=== PATIENT | female | born 1970 | race Caucasian/White ===

== ENCOUNTER 2016-12-02 18:14 | Emergency (ER) | payer BC ==
[~2016-12-02] VITALS: Ht 167.6 cm; Wt 103.2 kg
[~2016-12-02 18:14] MED LIST: ADIPEX-P37.5 M1 PO; AMBIEN10 MG PO; AMOXICILLIN 8751 TAB PO; BCP TD; CARDI-OMEGA1000 MG PO; CEPHALEXIN250 M1 PO; DEPO PROVER150 MG/ML IM; FAMVIR250 MG PO; LORTAB 5/500 501 TAB PO; MACROBID 1100 MG/CAP PO; MOTRIN 800800 MG/TAB PO; MULTIPLE VITAMI1 CAP PO; NAPROSYN500 MG PO; NEURONTIN300 MG/CAP PO; NORCO 325 MG-51 TAB PO; PERCOCET 325 MG1 TA2 PO; PROMETHAZINE12.5 M5 PO; PYRIDIUM200 M1 PO; ULTRAM 50MG TAB50 MG PO; ZOFRAN ODT8 MG PO; ZOFRAN8 MG PO; ZOLOFT; ZOLOFT 25MG25 MG PO; [UNRECOGNIZED DRUG - REMARK]
[2016-12-02 18:31] VITALS: BP 128/92; TEMP 98.6
[2016-12-02] MEDS ORDERED: PROAIR HFA0.09 MG/AC IH (18:36)
[2016-12-02] MEDS ORDERED: DOXYCYCLINE HY100 MG PO (18:36)
[2016-12-02] MEDS ORDERED: PREDNISONE20 MG PO ×2 (18:36→21:16)
[2016-12-02] MEDS ORDERED: PHENERGAN W/CO120 M1 PO (18:37)
[2016-12-02 21:22] VITALS: PULSE 99
== END 2016-12-02 21:23 | disposition home or self-care (01) ==
LOC: COL.ER 18:14
DX: J20.9 Acute bronchitis, unspecified (principal); Z87.891 Personal history of nicotine dependence
CPT/HCPCS: J7512

== ENCOUNTER 2017-02-28 15:15 | Emergency (ER) | payer BC ==
[~2017-02-28] VITALS: Ht 167.6 cm; Wt 103.6 kg
[~2017-02-28 15:15] MED LIST changes: +DOXYCYCLINE HY100 MG PO; +PHENERGAN W/CO120 M1 PO; +PREDNISONE20 MG PO; +PROAIR HFA0.09 MG/AC IH
[2017-02-28 15:17] VITALS: TEMP 97.2
[2017-02-28 16:14] LABS: BASO % 0.3 % (0.0-2.0); EOS # 0.2 (0.0-0.7); EOS % 2.4 % (0-4.0); GRAN # 5.1 (1.4-6.5); GRAN % 72.1 % (42.2-75.2); HEMOGLOBIN 13.1 g/dl (12.5-16.0); LYMPH # 1.3 (1.2-3.4); LYMPH % 18.4 % (20.0-51.0); MEAN CELL VOLUME 88 fl (80.0-100.0); MEAN CORPUSCULAR HEMOGLOBIN 30 pg (27.0-31.0); MEAN CORPUSCULAR HGB CONC 35 g/dl (33.0-37.0); MEAN PLATELET VOLUME 9.4 fl (7.4-10.4); MONO # 0.5 (0.1-0.6); MONO % 6.5 % (1.7-9.3); PLATELET COUNT 206 K/mm3 (130-400); RED BLOOD COUNT 4.34 M/mm3 (4.10-5.30); WHITE BLOOD COUNT 7.1 K/mm3 (4.8-10.8)
[2017-02-28 16:20] LABS: ADJUSTED CALCIUM 9.4 mg/dL (8.4-10.2); ALBUMIN 4.3 gm/dL (3.5-5.0); BILIRUBIN,TOTAL 0.8 mg/dL (0.0-1.0); CALCIUM 9.6 mg/dL (8.4-10.2); CREATININE, serum 1.01 mg/dL (0.52-1.25); POTASSIUM 3.4 mmol/L (3.4-5.0); TOTAL PROTEIN 7.4 gm/dL (6.4-8.2)
[2017-02-28 17:05] LABS: HYALINE CAST >12 /lpf; PH 7 (5-8); URINE APPEARANCE Hazy; URINE BACTERIA Rare /hpf; URINE BILIRUBIN Negative (NEGATIVE); URINE BLOOD Negative (NEGATIVE); URINE COLOR Yellow; URINE GLUCOSE Negative (NEGATIVE); URINE KETONE Negative (NEGATIVE); URINE RBC 0-2 /hpf; URINE UROBILINOGEN Negative (NEGATIVE)
[2017-02-28 18:11] VITALS: BP 118/66; PULSE 87
== END 2017-02-28 18:12 | disposition home or self-care (01) ==
LOC: COL.ER 15:15
PROVIDERS: Family Medicine
DX: E86.0 Dehydration (principal); R55 Syncope and collapse; Z85.3 Personal history of malignant neoplasm of breast; R51 Headache
CPT/HCPCS: J2405; J7030

== ENCOUNTER 2017-06-07 09:25 | Outpatient (RCR) | payer OTHER | END 2017-07-07 14:03 | disposition still patient (30) | LOC: WSOH 09:25 | DX: M25.532 Pain in left wrist (principal); M25.531 Pain in right wrist; M25.521 Pain in right elbow; Z85.3 Personal history of malignant neoplasm of breast; Z90.12 Acquired absence of left breast and nipple ==

== ENCOUNTER 2017-08-02 12:37 | Emergency (ER) | payer BC ==
[~2017-08-02] VITALS: Ht 167.6 cm; Wt 107.3 kg
[2017-08-02 12:42] VITALS: BP 134/84; TEMP 98
[2017-08-02] MEDS ORDERED: MACROBID 1100 MG/CAP PO (12:47)
[2017-08-02] MEDS ORDERED: CIPRO 250MG TA250 MG PO (12:48)
[2017-08-02 13:53] LABS: COLLECTION METHOD CLEAN CATCH
[2017-08-02 14:08] LABS: BASO % 0.8 % (0.0-2.0); EOS # 0.3 (0.0-0.7); EOS % 5.5 % (0-4.0); GRAN # 2.4 (1.4-6.5); GRAN % 45.9 % (42.2-75.2); HEMATOCRIT 39.9 % (37.0-47.0); HEMOGLOBIN 13.6 g/dl (12.5-16.0); LYMPH # 2.1 (1.2-3.4); LYMPH % 38.9 % (20.0-51.0); MEAN CELL VOLUME 87 fl (80.0-100.0); MEAN CORPUSCULAR HEMOGLOBIN 30 pg (27.0-31.0); MEAN CORPUSCULAR HGB CONC 34 g/dl (33.0-37.0); MEAN PLATELET VOLUME 9.4 fl (7.4-10.4); MONO # 0.5 (0.1-0.6); MONO % 8.5 % (1.7-9.3); MUCOUS Present /lpf; PH 7 (5-8); PLATELET COUNT 231 K/mm3 (130-400); RED BLOOD COUNT 4.58 M/mm3 (4.10-5.30); URINE APPEARANCE Hazy; URINE BACTERIA Rare /hpf; URINE BILIRUBIN Negative (NEGATIVE); URINE BLOOD Negative (NEGATIVE); URINE COLOR Amber; URINE GLUCOSE Negative (NEGATIVE); URINE KETONE Negative (NEGATIVE); URINE LEUKOCYTE ESTERASE Negative (NEGATIVE); URINE PROTEIN(semi-quant) Negative (NEGATIVE); URINE RBC 0-2 /hpf; WHITE BLOOD COUNT 5.3 K/mm3 (4.8-10.8)
[2017-08-02 14:15] LABS: ADJUSTED CALCIUM 9.4 mg/dL (8.4-10.2); ALBUMIN 4.4 gm/dL (3.5-5.0); BILIRUBIN,TOTAL 0.7 mg/dL (0.0-1.0); C-REACTIVE PROTEIN 0.8 mg/dL (0.0-0.9); CALCIUM 9.7 mg/dL (8.4-10.2); CREATININE, serum 0.79 mg/dL (0.52-1.25); POTASSIUM 3.9 mmol/L (3.4-5.0)
[2017-08-02] MEDS ORDERED: OMNICEF 300MG300 MG PO (15:55)
[2017-08-02] MEDS ORDERED: ZOFRAN ODT4 MG PO (15:55)
[2017-08-02] MEDS ORDERED: NORCO 325 MG-51 TAB PO (15:55)
[2017-08-02 16:29] VITALS: PULSE 82
== END 2017-08-02 16:29 | disposition home or self-care (01) ==
LOC: COL.ER 12:37
PROVIDERS: Physician Assistant
DX: N39.0 Urinary tract infection, site not specified (principal); Z90.710 Acquired absence of both cervix and uterus; Z85.3 Personal history of malignant neoplasm of breast
CPT/HCPCS: J1170; J1885; J2405; J2550; J7030

== ENCOUNTER 2017-08-25 09:11 | Emergency (ER) | payer BC ==
[~2017-08-25] VITALS: Ht 167.6 cm; Wt 106.8 kg
[~2017-08-25 09:11] MED LIST changes: +CIPRO 250MG TA250 MG PO; +OMNICEF 300MG300 MG PO; +ZOFRAN ODT4 MG PO
[2017-08-25 09:16] VITALS: TEMP 98.4
[2017-08-25] MEDS ORDERED: NEURONTIN300 MG/CAP PO (09:19)
[2017-08-25] MEDS ORDERED: MOTRIN 200200 MG/TAB PO (09:33)
[2017-08-25 11:06] VITALS: BP 112/70; PULSE 65
== END 2017-08-25 10:45 | disposition home or self-care (01) ==
LOC: COL.ER 09:11
DX: S83.91XA Sprain of unspecified site of right knee, initial encounter (principal); F32.9 Major depressive disorder, single episode, unspecified; G62.9 Polyneuropathy, unspecified; Z79.1 Long term (current) use of non-steroidal anti-inflammatories (NSAID); W01.0XXA Fall on same level from slipping, tripping and stumbling without subsequent striking against object, initial encounter
CPT/HCPCS: L1830

== ENCOUNTER 2018-01-09 22:39 | Emergency (ER) | payer BC ==
[~2018-01-09] VITALS: Ht 167.6 cm; Wt 116.4 kg
[~2018-01-09 22:39] MED LIST changes: +MOTRIN 200200 MG/TAB PO
[2018-01-09 23:20] VITALS: TEMP 98
[2018-01-09 23:32] LABS: BASO % 0.4 % (0.0-2.0); EOS # 0.4 (0.0-0.7); EOS % 5.8 % (0-4.0); GRAN # 2.6 (1.4-6.5); GRAN % 38.3 % (42.2-75.2); HEMATOCRIT 38.4 % (37.0-47.0); LYMPH # 3.1 (1.2-3.4); LYMPH % 46.7 % (20.0-51.0); MEAN CELL VOLUME 89 fl (80.0-100.0); MEAN CORPUSCULAR HEMOGLOBIN 30 pg (27.0-31.0); MEAN CORPUSCULAR HGB CONC 34 g/dl (33.0-37.0); MEAN PLATELET VOLUME 9.2 fl (7.4-10.4); MONO # 0.6 (0.1-0.6); MONO % 8.5 % (1.7-9.3); PLATELET COUNT 180 K/mm3 (130-400); RED BLOOD COUNT 4.33 M/mm3 (4.10-5.30); REDCELL DISTRIBUTION WIDTH-CV 12.5 % (11.5-14.5)
[2018-01-09 23:42] LABS: ALBUMIN 3.6 gm/dL (3.5-5.0); BILIRUBIN,TOTAL 0.4 mg/dL (0.0-1.0); CALCIUM 8.6 mg/dL (8.4-10.2); CREATININE, serum 0.79 mg/dL (0.52-1.25); POTASSIUM 3.5 mmol/L (3.4-5.0); TOTAL PROTEIN 7.2 gm/dL (6.4-8.2)
[2018-01-10 00:10] VITALS: BP 147/75; PULSE 88
== END 2018-01-10 00:55 | disposition home or self-care (01) ==
LOC: COL.ER 22:39
PROVIDERS: Nurse Practitioner
DX: J06.9 Acute upper respiratory infection, unspecified (principal); C50.919 Malignant neoplasm of unspecified site of unspecified female breast; Z90.710 Acquired absence of both cervix and uterus; Z90.13 Acquired absence of bilateral breasts and nipples
CPT/HCPCS: J1885; J2270; J2405; J7030

== ENCOUNTER 2018-07-26 01:14 | Emergency (ER) | payer BC ==
[~2018-07-26] VITALS: Ht 167.6 cm; Wt 112.3 kg
[2018-07-26] MEDS ORDERED: AMOXICILLIN 50500 MG PO (01:38)
[2018-07-26] MEDS ORDERED: ZOFRAN ODT4 MG PO (01:38)
[2018-07-26] MEDS ORDERED: MOBIC15 MG PO (01:56)
[2018-07-26 03:24] VITALS: BP 115/75; PULSE 93; TEMP 99
== END 2018-07-26 03:29 | disposition home or self-care (01) ==
LOC: COL.ER 01:14
DX: J03.90 Acute tonsillitis, unspecified (principal)
CPT/HCPCS: J1885; J2550

== ENCOUNTER 2018-10-16 13:00 | Outpatient (RCR) | payer OTHER ==
[~2018-10-16 13:00] MED LIST changes: +AMOXICILLIN 50500 MG PO; +MOBIC15 MG PO
== END 2019-01-14 | disposition home or self-care (01) ==
LOC: WSOH
DX: S61.232A Puncture wound without foreign body of right middle finger without damage to nail, initial encounter (principal); L02.511 Cutaneous abscess of right hand; W26.8XXA Contact with other sharp object(s), not elsewhere classified, initial encounter; Y92.59 Other trade areas as the place of occurrence of the external cause; Y99.0 Civilian activity done for income or pay; Z79.899 Other long term (current) drug therapy

== ENCOUNTER 2019-03-18 16:09 | Emergency (ER) | payer BC ==
[~2019-03-18] VITALS: Ht 167.6 cm; Wt 111.4 kg
[2019-03-18 16:15] VITALS: TEMP 98
[2019-03-18] MEDS ORDERED: CELEBREX50 MG (17:18)
[2019-03-18] MEDS ORDERED: NORCO 325 MG-51 TAB PO (17:19)
[2019-03-18] MEDS ORDERED: FLEXERIL 1010 MG/TAB PO (17:19)
[2019-03-18 19:06] VITALS: BP 135/88; PULSE 74
== END 2019-03-18 19:06 | disposition home or self-care (01) ==
LOC: COL.ER 16:09
DX: M54.5 Low back pain (principal); Z85.3 Personal history of malignant neoplasm of breast
CPT/HCPCS: J1885; J2270

== ENCOUNTER → 2020-03-19 | Outpatient (CLI) | payer BC ==
[~2020-03-19] MED LIST changes: +CELEBREX50 MG; +FLEXERIL 1010 MG/TAB PO
== END ==
LOC: COL.RAD 07:05
DX: C50.812 Malignant neoplasm of overlapping sites of left female breast (principal); K76.0 Fatty (change of) liver, not elsewhere classified; Z90.13 Acquired absence of bilateral breasts and nipples; Z92.3 Personal history of irradiation; Z98.84 Bariatric surgery status
CPT/HCPCS: A9503; Q9967

== ENCOUNTER 2020-04-06 17:57 | Emergency (ER) | payer OTHER ==
[~2020-04-06] VITALS: Ht 167.6 cm; Wt 69.1 kg
[2020-04-06 18:29] VITALS: BP 119/75; TEMP 97.8
[2020-04-06 20:04] VITALS: PULSE 65
== END 2020-04-06 20:05 | disposition home or self-care (01) ==
LOC: COL.ER 17:57
DX: S00.83XA Contusion of other part of head, initial encounter (principal); S06.0X9A Concussion with loss of consciousness of unspecified duration, initial encounter; M54.2 Cervicalgia; G62.9 Polyneuropathy, unspecified; Z85.3 Personal history of malignant neoplasm of breast; Z79.899 Other long term (current) drug therapy; V89.2XXA Person injured in unspecified motor-vehicle accident, traffic, initial encounter; Y92.410 Unspecified street and highway as the place of occurrence of the external cause

== ENCOUNTER 2020-05-26 18:40 | Emergency (ER) | payer SELFPAY ==
[~2020-05-26] VITALS: Ht 167.6 cm; Wt 70.0 kg
[2020-05-26 18:49] VITALS: TEMP 98
[2020-05-26 19:37] LABS: ARTERIAL BLD GAS O2 SATURATION 97.1 % (92-100); ARTERIAL BLD GAS TCO2 CT 22.3; ARTERIAL BLOOD GAS BASE EXCESS -2.2 (-2-2); ARTERIAL BLOOD GAS HCO3 21.3 meq/L (22-26); ARTERIAL BLOOD GAS PCO2 32.7 mmHg (35-45); ARTERIAL BLOOD GAS PO2 91.6 mmHg (80-100); ARTERIAL BLOOD GAS pH 7.43 (7.35-7.45)
[2020-05-26 22:35] VITALS: BP 118/79; PULSE 68
== END 2020-05-26 22:37 | disposition home or self-care (01) ==
LOC: COL.ER 18:40
PROVIDERS: Emergency Medicine
DX: T59.91XA Toxic effect of unspecified gases, fumes and vapors, accidental (unintentional), initial encounter (principal); Y92.59 Other trade areas as the place of occurrence of the external cause
CPT/HCPCS: J0780; J1170; J7030

== ENCOUNTER 2020-08-25 18:06 | Emergency (ER) | payer BC ==
[~2020-08-25] VITALS: Ht 167.6 cm; Wt 65.9 kg
[2020-08-25 18:09] VITALS: BP 120/76; TEMP 98.3
[2020-08-25 19:11] VITALS: PULSE 77
== END 2020-08-25 19:11 | disposition home or self-care (01) ==
LOC: COL.ER 18:06
DX: S93.601A Unspecified sprain of right foot, initial encounter (principal); Z90.710 Acquired absence of both cervix and uterus; Z90.13 Acquired absence of bilateral breasts and nipples; Z98.84 Bariatric surgery status; Z88.6 Allergy status to analgesic agent; Z87.891 Personal history of nicotine dependence; W18.40XA Slipping, tripping and stumbling without falling, unspecified, initial encounter; Y93.01 Activity, walking, marching and hiking

== ENCOUNTER 2020-11-18 06:01 | Emergency (ER) | payer BC ==
[~2020-11-18] VITALS: Ht 167.6 cm; Wt 63.6 kg
[2020-11-18 06:07] VITALS: BP 89/55; TEMP 97.3
[2020-11-18 07:05] VITALS: PULSE 67
== END 2020-11-18 07:05 | disposition home or self-care (01) ==
LOC: COL.ER 06:01
DX: S93.601A Unspecified sprain of right foot, initial encounter (principal); Z88.6 Allergy status to analgesic agent; X50.0XXA Overexertion from strenuous movement or load, initial encounter

== ENCOUNTER 2021-05-11 15:20 | Emergency (ER) | payer BC ==
[~2021-05-11] VITALS: Ht 167.6 cm; Wt 68.2 kg
[2021-05-11 15:30] VITALS: TEMP 97.3
[2021-05-11 15:46] LABS: COLLECTION METHOD CLEAN CATCH
[2021-05-11 15:56] LABS: MUCOUS Present /lpf; PH 6 (5-8); SQUAMOUS EPITHELIAL 0-2 /hpf; URINE APPEARANCE Clear; URINE BACTERIA None Seen /hpf; URINE BILIRUBIN Negative (NEGATIVE); URINE BLOOD Negative (NEGATIVE); URINE CALCIUM OXALATE CRYSTAL Present /hpf; URINE COLOR Yellow; URINE GLUCOSE Negative (NEGATIVE); URINE KETONE Negative (NEGATIVE); URINE LEUKOCYTE ESTERASE 2+ (NEGATIVE); URINE NITRATE Negative (NEGATIVE); URINE PROTEIN(semi-quant) Negative (NEGATIVE); URINE UROBILINOGEN Negative (NEGATIVE)
[2021-05-11 15:57] LABS: BASO % 0.5 % (0.0-2.0); EOS # 0.2 (0.0-0.7); EOS % 2.6 % (0-4.0); GRAN % 72.9 % (42.2-75.2); HEMATOCRIT 43.4 % (37.0-47.0); HEMOGLOBIN 14.3 g/dl (12.5-16.0); LYMPH # 1.5 (1.2-3.4); LYMPH % 18.1 % (20.0-51.0); MEAN CELL VOLUME 91 fl (80.0-100.0); MEAN CORPUSCULAR HEMOGLOBIN 30 pg (27.0-31.0); MEAN CORPUSCULAR HGB CONC 33 g/dl (33.0-37.0); MEAN PLATELET VOLUME 9.8 fl (7.4-10.4); MONO # 0.5 (0.1-0.6); MONO % 5.5 % (1.7-9.3); PLATELET COUNT 200 K/mm3 (130-400); RED BLOOD COUNT 4.79 M/mm3 (4.10-5.30); REDCELL DISTRIBUTION WIDTH-CV 12.7 % (11.5-14.5)
[2021-05-11 16:01] LABS: ALBUMIN 4.7 gm/dL (3.5-5.0); CALCIUM 9.9 mg/dL (8.4-10.2); CREATININE, serum 0.71 (0.52-1.25); TOTAL PROTEIN 8.3 gm/dL (6.4-8.2)
[2021-05-11] MEDS ORDERED: ZOFRAN ODT4 MG PO (18:29)
[2021-05-11] MEDS ORDERED: CEPHALEXIN500 M1 PO (18:29)
[2021-05-11 18:57] VITALS: BP 109/71; PULSE 70
== END 2021-05-11 18:57 | disposition home or self-care (01) ==
LOC: COL.ER 15:20
PROVIDERS: Emergency Medicine
DX: R10.31 Right lower quadrant pain (principal); R10.32 Left lower quadrant pain; R11.0 Nausea; R94.5 Abnormal results of liver function studies; Z98.84 Bariatric surgery status; Z90.710 Acquired absence of both cervix and uterus
CPT/HCPCS: J2270; J2405; J7030; Q9967

== ENCOUNTER 2021-07-11 14:55 | Emergency (ER) | payer BC ==
[~2021-07-11] VITALS: Ht 167.6 cm; Wt 68.2 kg
[~2021-07-11 14:55] MED LIST changes: +CEPHALEXIN500 M1 PO
[2021-07-11 15:37] VITALS: BP 128/85; TEMP 98.2
[2021-07-11 16:32] LABS: BASO % 0.6 % (0.0-2.0); EOS # 0.3 (0.0-0.7); EOS % 5.9 % (0-4.0); GRAN # 2.8 (1.4-6.5); GRAN % 57.8 % (42.2-75.2); HEMATOCRIT 38.5 % (37.0-47.0); HEMOGLOBIN 13.1 g/dl (12.5-16.0); LYMPH # 1.3 (1.2-3.4); LYMPH % 26.1 % (20.0-51.0); MEAN CELL VOLUME 89 fl (80.0-100.0); MEAN CORPUSCULAR HEMOGLOBIN 30 pg (27.0-31.0); MEAN CORPUSCULAR HGB CONC 34 g/dl (33.0-37.0); MEAN PLATELET VOLUME 9.1 fl (7.4-10.4); MONO # 0.5 (0.1-0.6); MONO % 9.6 % (1.7-9.3); PLATELET COUNT 179 K/mm3 (130-400); RED BLOOD COUNT 4.35 M/mm3 (4.10-5.30); REDCELL DISTRIBUTION WIDTH-CV 13.2 % (11.5-14.5)
[2021-07-11 16:35] LABS: STREP SCREEN NEGATIVE
[2021-07-11 16:42] LABS: BILIRUBIN,TOTAL 0.4 mg/dL (0.2-1.2); CALCIUM 9.6 mg/dL (8.4-10.2); CREATININE, serum 0.74 mg/dL (0.57-1.11); POTASSIUM 3.8 mmol/L (3.5-4.5); TOTAL PROTEIN 7.1 gm/dL (6.2-8.1)
[2021-07-11] MEDS ORDERED: TESSALON PERLE200 MG PO (17:08)
[2021-07-11] MEDS ORDERED: TRIAMCINOLONE A15 GM TP (17:09)
[2021-07-11 17:12] VITALS: PULSE 84
== END 2021-07-11 17:12 | disposition home or self-care (01) ==
LOC: COL.ER 14:55
PROVIDERS: Physician Assistant
DX: J40 Bronchitis, not specified as acute or chronic (principal); L30.9 Dermatitis, unspecified; Z87.891 Personal history of nicotine dependence

== ENCOUNTER 2021-07-17 17:53 | Emergency (ER) | payer BC ==
[~2021-07-17] VITALS: Ht 162.6 cm; Wt 70.5 kg
[~2021-07-17 17:53] MED LIST changes: +TESSALON PERLE200 MG PO; +TRIAMCINOLONE A15 GM TP
[2021-07-17 18:31] LABS: BASO # 0.1 K/mm3 (0.0-0.2); BASO % 0.8 % (0.0-2.0); EOS # 0.2 K/mm3 (0.0-0.7); EOS % 3.9 % (0-4.0); GRAN # 3.3 K/mm3 (1.4-6.5); GRAN % 53.4 % (42.2-75.2); HEMATOCRIT 43.3 % (37.0-47.0); HEMOGLOBIN 14.9 g/dl (12.5-16.0); LYMPH % 33.1 % (20.0-51.0); MEAN CELL VOLUME 88 fl (80.0-100.0); MEAN CORPUSCULAR HEMOGLOBIN 30 pg (27.0-31.0); MEAN CORPUSCULAR HGB CONC 34 g/dl (33.0-37.0); MONO # 0.5 K/mm3 (0.1-0.6); MONO % 8.6 % (1.7-9.3); PLATELET COUNT 233 K/mm3 (130-400); RED BLOOD COUNT 4.93 M/mm3 (4.10-5.30); REDCELL DISTRIBUTION WIDTH-CV 13.1 % (11.5-14.5)
[2021-07-17 18:53] LABS: ALANINE AMINOTRANSFERASE 36 U/L (0-55); ALBUMIN 4.7 gm/dL (3.5-5.0); ALKALINE PHOSPHATASE 110 U/L (0-750); ANION GAP 10 mmol/L (7-16); AST,SGOT 31 U/L (5-34); BILIRUBIN,TOTAL 0.7 mg/dL (0.2-1.2); BLOOD UREA NITROGEN 19 mg/dL (10-20); CALCIUM 10.6 mg/dL (8.4-10.2); CARBON DIOXIDE 24 mmol/L (22-29); CHLORIDE 104 mmol/L (98-107); CREATININE, serum 0.86 mg/dL (0.57-1.11); GLUCOSE 81 mg/dL (70-99); LIPASE 45 U/L (8-78); POTASSIUM 3.9 mmol/L (3.5-4.5); SODIUM 138 mmol/L (136-145); TOTAL PROTEIN 8.8 gm/dL (6.2-8.1)
[2021-07-17 19:01] LABS: TROPONIN-I < 0.010 ng/mL (0.00-0.033)
[2021-07-17] MEDS ORDERED: FLEXERIL 1010 MG/TAB PO (20:04)
[2021-07-17 20:29] VITALS: BP 114/73; PULSE 74; TEMP 98.4
== END 2021-07-17 20:29 | disposition home or self-care (01) ==
LOC: COL.ER 17:53
PROVIDERS: Physician Assistant
DX: R07.89 Other chest pain (principal); R11.0 Nausea; F32.A Depression, unspecified
CPT/HCPCS: J2270; J2360; J2405; J7030

== ENCOUNTER 2021-11-03 17:30 | Emergency (ER) | payer BC ==
[~2021-11-03] VITALS: Ht 165.1 cm; Wt 68.2 kg
[2021-11-03 17:49] VITALS: TEMP 98
[2021-11-03] MEDS ORDERED: ZOFRAN ODT4 MG PO (18:05)
[2021-11-03 18:27] VITALS: BP 118/73; PULSE 81
== END 2021-11-03 18:28 | disposition home or self-care (01) ==
LOC: COL.ER 17:30
DX: B34.9 Viral infection, unspecified (principal); Z20.822 Contact with and (suspected) exposure to COVID-19

== ENCOUNTER 2021-12-02 03:43 | Emergency (ER) | payer BC ==
[~2021-12-02] VITALS: Ht 165.1 cm; Wt 68.2 kg
[2021-12-02 04:13] LABS: BASO % 0.5 % (0.0-2.0); EOS # 0.2 K/mm3 (0.0-0.7); EOS % 2.5 % (0.0-4.0); GRAN # 4.5 K/mm3 (1.4-6.5); GRAN % 74.8 % (42.2-75.2); HEMATOCRIT 39.9 % (37.0-47.0); HEMOGLOBIN 13.4 g/dl (12.5-16.0); LYMPH # 0.8 K/mm3 (1.2-3.4); LYMPH % 13.7 % (20.0-51.0); MEAN CELL VOLUME 89 fl (80.0-100.0); MEAN CORPUSCULAR HEMOGLOBIN 30 pg (27-31); MEAN CORPUSCULAR HGB CONC 34 g/dl (33.0-37.0); MONO # 0.5 K/mm3 (0.1-0.6); MONO % 8.3 % (1.7-9.3); PLATELET COUNT 197 K/mm3 (130-400); RED BLOOD COUNT 4.51 M/mm3 (4.10-5.30); REDCELL DISTRIBUTION WIDTH-CV 12.7 % (11.5-14.5)
[2021-12-02 04:37] LABS: ALBUMIN 3.9 gm/dL (3.5-5.0); ALKALINE PHOSPHATASE 101 U/L (40-150); ANION GAP 11 mmol/L (7-16); AST,SGOT 56 U/L (5-34); BILIRUBIN,TOTAL 0.6 mg/dL (0.2-1.2); BLOOD UREA NITROGEN 14 mg/dL (10-20); CARBON DIOXIDE 20 mmol/L (22-29); CHLORIDE 110 mmol/L (98-107); GLUCOSE 126 mg/dL (70-99); POTASSIUM 3.7 mmol/L (3.5-4.5); SODIUM 141 mmol/L (136-145); TROPONIN-I < 0.010 ng/mL (0.00-0.033)
[2021-12-02 04:57] VITALS: BP 114/74; PULSE 88; TEMP 98.7
[2021-12-02 05:41] LABS: ALANINE AMINOTRANSFERASE 75 U/L (0-55)
== END 2021-12-02 05:06 | disposition home or self-care (01) ==
LOC: COL.ER 03:43
PROVIDERS: Emergency Medicine
DX: J06.9 Acute upper respiratory infection, unspecified (principal); R00.0 Tachycardia, unspecified; Z20.822 Contact with and (suspected) exposure to COVID-19
CPT/HCPCS: J7030

== ENCOUNTER 2023-12-02 22:58 | Emergency (ER) | payer BC ==
[~2023-12-02] VITALS: Ht 167.6 cm; Wt 77.3 kg
[2023-12-02 23:52] VITALS: TEMP 99
[2023-12-03] MEDS ORDERED: dexAMETHasone 10 MG/ML VIAL IV ONE (01:00)
[2023-12-03] MEDS ORDERED: NS 500 ML IV ONE (01:00)
[2023-12-03] MEDS ORDERED: diphenhydrAMINE 50 MG/ML 1 ML VIAL IV ONE (01:00)
[2023-12-03] MEDS ORDERED: Ketorolac 30 MG/ML VIAL IV ONE (01:00)
[2023-12-03 01:04] LABS: BASO % 0.3 % (0.0-2.0); EOS # 0.1 K/mm3 (0.0-0.7); EOS % 1.6 % (0.0-4.0); GRAN % 86.8 % (42.2-75.2); HEMATOCRIT 40.6 % (37.0-47.0); HEMOGLOBIN 13.7 g/dl (12.5-16.0); LYMPH # 0.4 K/mm3 (1.2-3.4); LYMPH % 6.3 % (20.0-51.0); MEAN CELL VOLUME 89 fl (80.0-100.0); MEAN CORPUSCULAR HEMOGLOBIN 30 pg (27-31); MEAN CORPUSCULAR HGB CONC 34 g/dl (33.0-37.0); MEAN PLATELET VOLUME 9.3 fl (7.4-10.4); MONO # 0.3 K/mm3 (0.1-0.6); MONO % 4.7 % (1.7-9.3); PLATELET COUNT 171 K/mm3 (130-400); RED BLOOD COUNT 4.56 M/mm3 (4.10-5.30); REDCELL DISTRIBUTION WIDTH-CV 13.2 % (11.5-14.5)
[2023-12-03 01:22] LABS: CALCIUM 8.9 mg/dL (8.4-10.2); CREATININE, serum 0.83 mg/dL (0.57-1.11); POTASSIUM 3.8 mmol/L (3.5-4.5)
[2023-12-03 03:05] VITALS: BP 124/77; PULSE 76
== END 2023-12-03 03:08 | disposition home or self-care (01) ==
LOC: COL.ER 22:58
PROVIDERS: Internal Medicine
DX: G43.019 Migraine without aura, intractable, without status migrainosus (principal)
CPT/HCPCS: J1100; J1200; J1885; J2765; J3475; J7040